=== PATIENT | female | born 1975 | race Hispanic/Latino ===

== ENCOUNTER 2020-11-22 17:42 | Emergency (ER) | payer OTHER ==
--- OUTSIDE RECORDS SUMMARY | 2020-11-22 17:45 | XMS REPORT | Continuity of Care Document ---
:[address] [facility] t Address [address] [place] [address] Care Team Providers Name Role Phone TJ Primary Care Physician Unavailable Mirian COMB CAPPER Attending Clinician MIRIAN Attending Clinician Unavailable Hector FLORES Attending Clinician Unavailable Hector Flores MD Attending Clinician Wing NARVAEZP Attending Clinician Kiesha STERN Attending Clinician Provider, Urgent Care Attending Clinician Unavailable Car DAMON, A Attending Clinician Unavailable Kayla RN Attending Clinician Unavailable Perry DAMON, C Attending Clinician Unavailable DEDRICK Attending Clinician Unavailable Lab, Fam Pob I Attending Clinician Unavailable Payers Payer Name Policy Type Policy Number Effective Date Expiration Date S ource ACCESS NETWORK [id number] 2020 Sd on GENERICTPA [employer]IG[employer] 00:00:00 [id number] Access Network [place] P[place] POS [id number] 2019 00:00:00 Problems Condition Condition Condition Status Onset Resolution Last Treating Co mments Source Name Details Category Date Date Treatment Clinician Date Adjustment 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 1-02 Sd o with with 00:00: n depressed depressed 00 mood mood Dysuria-fr Dysuria-fr 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 00:00: n 00 Family Family Disease Active history of history of 4-26 An derso malignant malignant 00:00: n neoplasm neoplasm 00 of ovary of ovary Ovarian Ovarian Disease Active Overview: cyst cyst 6-29 HL ICD10 Anderso 00:00: regulator n 00 y upload Elevated Elevated Disease Active cancer cancer 6 Anderso antigen antigen 00:00: n 125 (CA 125 (CA 00 125) 125) Acquired Acquired Disease Active absence of absence of 6-30 An derso bilateral bilateral 00:00: n breasts breasts 00 and and nipples nipples BRCA1 gene 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 Family History Family Member Diagnosis Comments Start Date Stop Date Source Maternal aunt Ovarian cancer MD Ramon jimenez Maternal grandmother Ovarian cancer MD Mandel Natural mother Ovarian cancer Other -Breast cancer MD Maddie loredo Natural sister Ovarian cancer Social History Social Habit Start Date Stop Date Quantity Comments Source Sex Assigned At F MD [place] on Exposure to Not sure MD Mandel SARS-CoV-2 (event) Tobacco use and 2020-05-02 2020-05-02 Never used MD [place] on exposure 00:00:00 00:00:00 Alcohol intake 2020-05-02 2020-05-02 Current MD Maddie loredo 00:00:00 00:00:00 non-drinker of alcohol (finding) Smoking Status Start Date Stop Date Source Never smoker MD Mandel Medications Ordered Filled Start Stop Current Ordering Indication Dosage Frequency Signature Comments Components Source Medication Medication Date Date Medication? Clinician (SIG) Name Name estradiol-n Yes Menopausal 1{patch Place 1 orethindron 4-29 and female } patch on Anderso e 00:00: climacteric the skin 2 n (CombiPatch 00 states (two) ) 0.05 times a mg-0.14 week MTH. mg/24 hr Remove old transdermal patch(es) patch before replacing new patch(es). MULTIVITAMI Yes 1{tbl} Take 1 MD Loredo ORAL 4-27 tablet by Andjulieth 16:26: mouth n 46 daily. PARoxetine Yes Menopausal 20mg Take 1 MD (PAXIL) 20 4-27 symptom tablet (20 Anderso mg tablet 00:00: mg) by n 00 mouth every morning. PARoxetine Yes BRCA1 gene 20mg Take 1 MD (PAXIL) 20 1-08 mutation tablet (20 Anderso mg tablet 00:00: positive mg) by n 00 mouth every morning. temazepam 2019-07 Yes BRCA1 gene 15mg Take 1 MD (RESTORIL) 1-30 mutation capsule An derso 15 mg 00:00: positive (15 mg) by n capsule 00 mouth at bedtime. LORazepam Yes BRCA1 gene .5mg Take 1 MD (ATIVAN) 8- mutation tablet Krzysztof so 0.5 mg 00:00: positive (0.5 mg) n tablet 00 by mouth 2 (two) times a day as needed (for breakthrou gh anxiety). temazepam 2019- No BRCA1 gene 15mg Take 1 MD (RESTORIL) 8-12 22-30 mutation capsule A nderso 15 mg 00:00: 00:00 positive (15 mg) by n capsule 00 :00 mouth at bedtime. temazepam Yes BRCA1 gene 15mg Take 1 MD (RESTORIL) 4-27 mutation capsule An derso 15 mg 00:00: positive (15 mg) by n capsule 00 mouth at bedtime. PARoxetine No BRCA1 gene 20mg Take 1 MD (PAXIL) 20 4-27 -08 mutation tablet (20 Anderso mg tablet 00:00: 00:00 positive mg) by n 00 :00 mouth every morning. LORazepam 2019- No BRCA1 gene .5mg Take 1 MD (ATIVAN) 4-09 03- mutation tablet Ramon rso 0.5 mg 00:00: 00:00 positive (0.5 mg) n tablet 00 :00 by mouth 2 (two) times a day as needed (for breakthrou gh anxiety). LORazepam Yes BRCA1 gene Take one MD (ATIVAN) 2-25 mutation half to Ramon rso 0.5 mg 00:00: positive one tablet n tablet 00 as needed for anxiety. temazepam 2019- No BRCA1 gene 15mg Take 1 MD (RESTORIL) 2- 08-06 mutation capsule A nderso 15 mg 00:00: 00:00 positive (15 mg) by n capsule 00 :00 mouth at bedtime. PARoxetine 2018-07 No Menopausal 20mg Take 1 MD (PAXIL) 20 2-31 04-27 symptom tablet (20 Anderso mg tablet 00:00: 00:00 mg) by n 00 :00 mouth every morning. norelgestro 2018- Yes Other Place one MD min-ethinyl 9-13 specified patch on Anderso estradiol 00:00: irregular skin n (ORTHO 00 menstruatio weekly EVRA) 150 n continuous mcg-35 mcg/24 hr transdermal patch estradiol-n 2019- No Menopausal 1{patch Place 1 MD orethindron 03-04 and female } patch on Anderso e 00:00: 04:59 climacteric the skin 2 n (COMBIPATCH 00 :00 states (two) ) 0.05-0.25 times a mg/24 hr week MTH. Remove old patch(es) before replacing new patch(es). ibuprofen Yes BRCA1 gene 600mg Take 1 MD (ADVIL,MOTR 8-05 mutation tablet An derso [place]) 600 mg 00:00: positive (600 mg) n tablet 00 by mouth every 6 (six) hours as needed for moderate pain. senna-docus Yes BRCA1 gene 1{tbl} Take 1 MD ate 8-05 mutation tablet by Sd o (SENOKOT-S) 00:00: positive mouth 2 n 8.6 mg-50 00 (two) mg tablet times a day as needed for constipati on. oxyCODONE Yes BRCA1 gene 5mg Take 1 MD (ROXICODONE 8-05 mutation tablet (5 Anderso ) 5 mg 00:00: positive mg) by n immediate 00 mouth release every 4 tablet (four) hours as needed for severe pain. acetaminoph Yes BRCA1 gene 1000mg Take 2 MD en (TYLENOL 8-05 mutation tablets A nderso EXTRA 00:00: positive (1,000 mg) n STRENGTH) 00 by mouth 500 mg every 6 tablet (six) hours as needed for mild pain. Immunizations Ordered Immunization Filled Immunization Date Status Commen ts Source Name Name Mary Ellen 2013-02-16 Completed MD Mandel 00:00:00 Vital Signs Vital Name Observation Time Observation Value Comments Source Systolic blood pressure 2020-11-07 16:26:12 100 mm[Hg] MD Mandel Diastolic blood pressure 2020-11-07 16:26:12 59 mm[Hg] MD Mandle Heart rate 2020-11-07 16:26:12 65 /min MD Krzysztof garcia Body temperature 2020-11-07 16:26:12 36.39 Anika MD Marinana sanchez Respiratory rate 2020-11-07 16:26:12 17 /min MD Marianna sanchez Body height 2020-11-07 15:26:00 153.9 cm MD Krzysztof garcia Body weight 2020-11-07 15:26:00 77 kg MD Krzysztof garcia BMI 2020-11-07 15:26:00 32.50 kg/m2 MD Krzysztof garcia Procedures Procedure Date / Time Performed Performing Clinician [facility] e CYTOLOGY CASE MANAGEMENT SOCIAL WORKER INTERPRETATION 2020-11-07 17:14:00 Tomeka Folres MD CYTOLOGY HPV 16/18 GENOTYPING 2020-11-07 17:14:00 Tomeka Flores MD AND HIGH RISK POOL DEXA BONE MINERAL DENSITY BOTH 2020-11-07 15:50:31 Constantine Lemons MD HIPS AND SPINE CANCER ANTIGEN 125 2020-11-07 15:04:00 Constantine Lemons MD on CANCER ANTIGEN 125 2020-07-25 17:48:00 Constantine Lemons MD on Encounters Start End Encounter Admission Attending Care Care Encounter Source Date/Time Date/Time Type Type Clinicians Facility Department ID 2020-11-07 2020-11-07 Outpatient EL MIRIANBENJAMIN MDA [id number] 09:15:00 23:59:00 CONSTANTINE loredo 2020-11-07 2020-11-07 Outpatient EL BENJAMIN FLORES MDA [id number] MD 10:58:35 12:22:49 TOMEKA loredo 2020-11-07 2020-11-07 Outpatient EL MIRIANBENJAMIN MDA [id number] 10:09:06 10:09:06 CONSTANTINE loredo 2020-10-23 2020-10-23 Tiara Dimas [facility] [id number] 00:00:00 00:00:00 [facility] [id number] [place] [id number] Professio [phone] [place] [address] [address] 2020-09-15 2020-09-15 Urgent Provider, [facility] [id number] 10:39:35 10:59:35 [facility] [id number] Care [place] [id number] Professio [phone] [place] [address] [address] 2020-07-25 2020-07-25 Outpatient EL MIRIAN, MDA MDA [id number] 10:00:00 23:59:00 CONSTANTINE loredo 2020-05-02 2020-05-02 Outpatient EL TSE, MDA MDA [id number] 15:40:13 15:59:55 KYLAH loredo 2020-02-17 2020-02-17 Outpatient EL TSE, MDA MDA [id number] MD 15:38:12 15:56:58 KYLAH loredo 2020-02-07 2020-02-07 Outpatient EL TSE, MDA MDA [id number] 00:00:00 00:00:00 KYLAH loredo 2020-01-02 2020-01-02 Laboratory Lab, [facility] [id number] 12:35:38 12:36:17 Only Fam Pob I Health [id number] [place] [id number] Professio [phone] [place] [address] [address] Results Test Description Test Time Test Comments Results Result Comments Source Cytology CASE MANAGEMENT SOCIAL WORKER Interpretation 2020-11-17 21:40:00 Test Item Value Reference Range Interpretation Comme nts Gross e8dmoMYvGYRxjVTTFHHtLRdwlhYcWUNdqKWiT6CndyxwZGfgYF1xUV2pbGklmFIgdYFyEV5RXXUmWaJa OCLidCOdmpCgJtGgNEKhgICicUI0OMRtZX9tthbjKXlmBHieXZKtuwF8ERUpbAQzF5VoILEqJT4yexys NMV2BMkwkN8ftlRWSxghSu7vfZIldCquXvNxWnUkLSJ Description wULGgFIIodUxeOPPgSQh5uB9ONpwqSSA5SORPDgdgGLVoZP4Hl7oiPXDrcSWsEOS0BMmfjCJfTTQmDHY hWAx6QILkDCwcdVXdNB6bqPmcClymnXilq2YwhOBzDTmoDLOyHNOqUXvdVYQnFQ8MFqAmTLCcQJD2Wgu xQAu9TLr7JV2RLhCeOQNeMQxgDsZqSURpEYe1XCpzOS (test code = 4PJDgzJDwnPxY5BQS2AZK0HrJjIMTuFmEtREDkZVMkIWchOOzlyeUlSIWtWHBtFGeeAsejSPscP04rcS xfhR3tOkcdqnItHTQ6HZYmigJQXuothLMrwrkoeUbzYcLfhBIsSzBoQLedaVYybVCdHTlvmwUdwpheHT KJVwwiqDJnhXesywGuOTTgS2MuNPBmnCxegecwtDAgF [id number]) QHuyBWxNW8TDSLbUPqkTISlyUQIKEO2LB3aLLkxxVWvsiccPBIdA4LgI7ZsphKesJViNZGdqeHqh4ohT RC3MBCzbFKegUQdLwAuHvcrDXB8CUdvg4ebEGC7TNDqkWYtuOYySQahImShOeebHCGuQ5MuQ0ZnxkV6I Qp9 Specimen c6ajyIJwRBMqmLLlHzJaWEAwRMLwh7nlFOVfeSHdBwSfHgPaZiNpMlfhbDTnXCNqSmAxp1pvi049tAGv p3khMMFfQcX6xIFcLENdlPXjU688ZWIsAHdno6iph6BsUNYytSIge6P9GLZXvviltPb7b3zlToKiMi9g uPFUw5XytLXtEC7xtuh7pFkeV33hi0Z6TpxzY4bzGTE Information sUDQgY8JvVZ2kJOYkQxq5QSM4OJW6EOXeSDZgU2TzLM5wPRSpgRSeSYfsjhOkNGnzevZiguSkYcy2KDB 8GDR9LKJxHPCsMOgrbjNnlhEmQey0SWPcJDK9SPAgLYS2BTmqacLzfvCqBon5PZIhM114AHS3vGapk4g tGQS2UVWoFTLpMzIpYu4xeIYoN924ECDaOUDGUJCfwN (test code = k0TSGxjzNilbEytBUCi199I881CBWeKJVpUKc6OvKMYKSnwaa2zU3lJVJnxu03gLzuwoCok79jcJIbWB alNyUyWRJjAyeioCIbq67cGYhwrVi5p6spnhCocGTKPSJmqep2lZ6zV566UXD8VKRaHSj5FApqvQMwvM 1lzMJ4WBdpIWCqGCpjIckfHmJoKUzyUYIhTKphdBRwm 29672) 3B3bFhlYUnppmVeZQfyKXWqfxSVVZj4c1ljIyfhnoS9vIGoq5W6pMtyAXubeiQqCsbxafS9BOVue1KfL YGhg3NoZVIrb9lqLU84oInyxfHuVBDuzUCfa8CadK2aLDD0zQlzaqzno91blGVmLZ54hRvltlNsULZho JCfGsVuLMpiQLHpEYVuDTNfHCWjJKFgNAaojMFdpP7i rBP5HQttEBybKHRcEEetJ865SOV8CCStSTv6VZkazGJtyJ0psCH1TAx1TPWxSxUcFkmdGrAgZJyrHCUy CKvkqMZpw9M0sLqyJJsyeaZfSWwpHOQvejZBGZj8i1onHAagbkY4cWLtj4F3lJwcSDfmemLkHNzflqGq YMZzj9VnYCGcv5DeDATqf2ozNU75dFaxkfHyLQJyxVU ny3BleS4dZAO3jEvihiDwEODzQVr8PYumaYFulW9zbXZ5QQf6CVFmWNBsHcedAnBbSPonEVTzSBezwHV bb0S6gAkxBBptmoWaOjgvBOLorxZGTpx8u8biDKYbm00bkTOlBWdxKCEoawFubra0v3qlJIWyx48cnCZ wXGxpMzYwXHJpMzYwXHNiMTAwXHNhMTAwXHNsMCBCbG 8wi8M0b3NgD606UUFtYXPslWRTTBQEK952SCDiZLRxEaUpPpMvGVVUX4ENV435GOBxEFQxwSfvIWEjQJ JnDKfcJR2rkQNctET9gDqgK7AaFta5iTtmXtHgBRhlJMOdcU9wN079GQVwGZrduPffR8V8CTYrgOrec1 CyOBhrJIVxfI7kD813XSNfSLvfWcAeOgJrGGysGWbvd HXjUUIsJ048BIJpZUfsnmT7tUTwStOcKqGiWKc9hFPrmYn5CGkbgDotRKN9ABH2Wct0I9d8wMB6XcNss Bq5Anp5IXF5HWn9JRo8uGD5NKXlpOt1GwdlJFU1CCLyRYh3cXi3FQCpa4NnXAZlDYxnjEVtSKNkNq4ba SS2dXOnE869GLPgHHwgxcV6rSViLlBnOyRqWub2YNKr ZYQ3CNBiNSDlNiezwbYyO0YxXCNpGHwwAu19sH5cYL0uFYJzcd96pJjbwmAcAMJfGUp1WOvcPSatzsL5 DZJbYeUvkjJgDvTlwbOyKGNfNJYkByQviOZzpm1Fi0Ulv6LpPf6rxNn3b2ibfcYjMYOcNJMhcVXyHIy7 d9hxyqLgYHFdO2Jax07gH144XWAyCeGrQsMuDgSqZZV IcQEtp7VkfFJmN086NBAsEwKeuNCDMDQbCWUtGWl5a6fyzdN8OPItB0L9OTaVQFzfNSVbt1RbP852JXA yPggttkDRp34gNY46D252b6drKLUzqsTorTpNfwgut8spR786LCEpzDItgiOvMuTzNZJfuHFchUL1JHY rSF8bgwysMKytQAxkLMUaszS3WNXbrMYxZ0MpDAOcVB 1vqqxnFVL6NMcjBXWnRPB2DuMxLEGuk7Vaibf2WmHzip1cvy85LLF0p3WscYasENB9XVS4PdRiIx2ttS NmHPQpKE8uZvKzxVGiWFAloy98rFvaAIvsxsGjhU6mOnAhQMCpjJIdOLWhGL2owFYkQUZuiZ8svocqUR FrSuRaxvfmSLQcpGctytTiPh0huKrhBSC8WNpvR4wdr J4gFaB6WTkuD1egjI8rGKp7ZHvvaFU2HTHhlQ9gSN3syonng9sqMCgcZOtdRTSuzcN0fxE7GSGxbNVeH 3FhaF1gFNHtEC5kfxglx8olOMZ4GQcvMWWcVZJ3CnSxKHAim2Ktnqa3YcRoi1YihFToFIxcX11he527Q ETcxtKbN2rxgCQuubwczQZralcnWWzfpuT9FZVumpHi pOhudV8dKmZdJfKiHQzqIF1bQRHhI5dmiYFfHOOlPXXeH7qsXgAaaM8qvDppLLpxLyIfEqBuZZYGRtRQ IHM0dMktRHX6txFAYSHjCNKTlOI5oWRdBzTdXPJoNVCfvXChCDEch66xUMQ6ISRySPuzUXY8 Specimen Satisfactory for evaluation Adequacy (test code = 9847) TZ/Endocervi Endocervical/transformation zone component present candice (test code = 9848) Diagnosis Negative for intraepithelial lesion or malignancy (test code = 9849) Diagnosis Acute inflammation with associated cellular changes Additional Statements (test code = 9850) HPV Reflex Yes for Scratch Finisher (test code = 9974) Informationa j7bacJKzNRHbcHYeBpBbGJCgNJMgv3btMDNjvXVuVmGgPjFaCeNqHrsfaQOrVYBdFoNzw0vjn702fXBd y2rkBTNnIpP2sTHzILHftOEzI856ORKoLQywx3djg2ViBEDbbOSzj9G3LHFTYVofGRLDSEs9z2xdVlYg ThJ2yPLkKJxaL5gjwnVbzSNaDPUjOWl4aD27UNResW8 l Points ocOKpVXpuzaUiXpR9PMqnMRMnAbR9JVSosAViFBNhZ7dbFJJrSXbpRZPeGCygbTJgLGV2vXgru4R0wVR ikQZxnCkgVgQhFoJlKnLNu2DmRXh1aCigY0JsKENmEuV4vGRvMYHmSUbuICTeZUZaaqZ5rM50IPkynsI 1mKRcm0Ugf71uo488iB3liBBvBPP9FRNyYUIssXQrOO (test code = FiRDH2ZRHonXPhO5ptYAKjLK5ihejaVMfvWVoiKZBpyOF4TEMesKRfE3BkOBAnELpkAHDddxj3JfSgGx 9zaTByaNejFZhji7rlu5phsFPpJzq7YENqYzNmLliuUKbhd0Xtf5xzWOBxkq6qQIS5jOPasVyrf0V7rS DbHVIusAWpheOfWNMvEzD8JHozTW4nmc24CQXnIJC4m 9836) f6qzGRsjUsbleBlkHVdRDczS9XoPOAkz560FLWcI0DfPDCpx7Q5alKtVrNaHOWfpWM7slR3MAAyEKc9v SWayaA7frRvcWZoS0phqI5iKZAtLM5nmurpu2xmAMbuTJtxNXSnkOU3quV7FQLewPBnU4WdzY4pSTPfC ZisIAQleik4LnHlVb4qyQFqyIhbSYgkQqrjEOgdETYx bxSihfOqfAjoZZWxAPTmWBwbABGqYEmgHWYrTQNiNvFsmQlciGewiB7iJlUhYdGoLPixQX1gMLMrZ4sx xZLeCJCgDXHuN9lcNkDitE5cyUiaQMhijvV2VBzyF2Niemofh9KwP1qrFHnqB6y5h2nzE5lmtKOvRSNh C4DtGY1pkbccyAFxP8BmkJTgMAL2TwziJ5AfaF8iMhE yq0DmfgClQBSyxzYoNBIuXCUfGScqNXUgb4FtfXo5YVAxLPHph6BzmBYbLDRhQJ6ogfRbcgUvrSVrrDA oj8gdzpQcVWXerAuvSpAzuI2ztWVdDV0etWRdjJFgg3X3TUueQPKqi72yLMXkCSm6zMCxDFOmxQI3zLY rpaJbQiMcfTGxYN6sVCMqf1JoHBUlOZYuimYlwdCkZL UyCEG5u4cwvGsvavL7yURgYWZoz0QbYC2aIJZ4unUnkiMeT8zbjnoiYUavZPB2QL1wWPYzehVPq29lAX Fwj3TaGEPxpW8pyTMxZEonnhPopVL8KQfcqeYgYdOertOrVNKjvD4rSVEhLK4jTEIjabOvxi0mrrSnJW LeDLZlT2OknaendGxrknWvJVJfex2aihTfEDA4EFJGI G4MCUYzGAJfo12rHHCwoSnanO3qzLWjfiLiCOMfc9AikV9tuAOJNGBrK6hwOC5yJTdbf2QqjYFqpLQqf PZ4KKNrq7AcNoMssaPsuPHofFOkU7IouJepS0fqXFDuBTPflnDgwBMti0CoOUJfyRT6bLFyOP2ZGgIRv 60cAWUvNVRIfrVpXSCqdCzsnJK2unH4xA4uLwHlxPky eB3eBoRnQyTtVlwlOD0gKAKcW6jeeNYsSVFcERLbG2xlSuIrfS5suR xmMlxmczIyXHBhcn0= MD MandelCytology HPV 16/18 Genotyping and High Risk [id number] 13:17:00 Test Item Value Reference Range Interpretation Comments HPV Type 16 (test code Negative Negative, = 9853) Indeterminate, Invalid HPV Type 18 (test code Negative Negative, = 9854) Indeterminate, Invalid HPV High Risk Negative Negative, Non-16/18 (test code = Indeterminate, 9855) Invalid Informational Points The shakira HPV Test (test code = 9852) ([facility], [place], [place]) is a qualitative in vitro diagnostic test for the detection of Human Papillomavirus in cervical specimens collected in PreservCyt Solution or SurePathTM Preservation Fluid. The test utilizes amplification of target DNA by the Polymerase Chain Reaction (PCR) and nucleic acid hybridization for the detection of 14 high-risk (HR) HPV types in a single analysis. The test specifically identifies types HPV16 and HPV18 while concurrently detecting the other high risk types (31, 33, 35, 39, 45, 51, 52, 56, 58, 59, 66, and 68). The performance characteristics of this test were validated and determined by the [facility] cytology laboratory. These validation analyses have confirmed the accurate performance of the assay of the employment legal assistant s stated limit of detection for the target of the test in various specimen types. The [facility] cytology laboratory is authorized under Clinical Laboratory Improvement Amendments (CLIA) to perform high-complexity testing. The [facility] Department of Pathology is accredited by the [employer] [place] ([employer]). MD MandelNM Bone Mineral Density Both Hips and [id number] 16:14:16The findings are in the range of normal bone mineral density. I personally reviewed these image(s) along with the resident's/fellow's interpretations, certify that if a procedure was performed I was physically present, and agree with the final report.Interface, Radiology Results In - 11/07/2020 11:16 AM CDTFULL RESULT:Examination: Bone Mineral Density (DXA), 11/07/2020linical History: 45-year-old postmenopausal woman with BRCA1 gene mutation and elevated CA- 125.Indication: Assessment of bone mineraldensity.Comparison: None.Technique: Bone mineral density was obtained using Hologic dual-energy X-ray absorptiometry.Findings: The findings are provided in the below table(s).Bone Density: Region Exam Date BMD T- Z- g/cm2 Score Score AP Spine (L1-L4) 11/07/2020 1.037 -0.1 0.4 Femoral Neck (Left) 11/07/2020 0.776 -0.7 -0.2 Total Hip (Left) 11/07/2020 0.947 0.0 0.3 Femoral Neck (Right) 11/07/2020 0.773 -0.7 -0.3 Total Hip (Right) 11/07/2020 0.943 0.0 0.3 For postmenopausal women and men age 50 and over, the World Health Organization criteria for BMD interpretation classify patients as: Normal (T-score at or above -1.0), Osteopenia (T-score between -1.0 and -2.5), or Osteoporosis (T- score at or below -2.5). IMPRESSION:The findings are in the range of normal bone mineral density.I personally reviewed these image(s) along with the resident's/fellow's interpretations, certify that if a procedure was performed I was physically present, and agree with the final report.MD MandelCA 125 2020-11-07 15:53:26 Test Item Value Reference Range Interpretation Comments CA 125 (test code = 6.6 U/mL See_Comment Results greater than 5164) 11,500.0 U/mL m ay not be reliable due to matrix effect with ext ended dilution as it exceeds the employment legal assistant's recommended limit. Caution should be exercised when interpreting ledbetter ch values and done in con junction with clinical context.Referen ce intervals are n ot available for m markos patients. Resul ts should be interpreted in conjunction wit h clinical context. Testin g Performed at [facility], [address], [place] [address] [Automat ed message] The system [employer] generated this result tra nsmitted reference range : <=38.0. The reference r shamar was not used to int erpret this result as valdo l/abnormal. MD Mandel
[2020-11-22] MEDS ORDERED: IBUPROFEN 200 MG TAB PO ONE (18:15)
[2020-11-22 18:27] LABS: Urine Blood 2+ (Negative); Urine Glucose Negative (Negative); Urine Protein Negative (Negative); Urine Specific Gravity 1.015 (1.005-1.030); Urine pH 5.5 (5.0-7.0)
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
--- NOTE | 2020-11-22 18:45 | RAD REPORT ---
EXAM DESCRIPTION: RAD - Shoulder Left 2 View - 11/22/2020 6:38 pm CLINICAL HISTORY: Left shoulder pain FINDINGS: Curvilinear calcific density superior to the humeral head may indicate calcific tendinitis . No fracture or dislocation noted
[2020-11-22 18:54] LABS: Urine Blood Negative (Negative); Urine Glucose Negative (Negative); Urine Protein Negative (Negative); Urine Specific Gravity 1.015 (1.005-1.030); Urine pH 6.5 (5.0-7.0)
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
[2020-11-22 20:50] VITALS: TEMP 98.6; O2SAT 100
[2020-11-22 20:51] VITALS: BP 129/82
== END 2020-11-22 20:31 | disposition home or self-care (01) ==
LOC: ER 17:42
DX: S16.1XXA Strain of muscle, fascia and tendon at neck level, initial encounter (principal); V49.40XA Driver injured in collision with unspecified motor vehicles in traffic accident, initial encounter; Z90.13 Acquired absence of bilateral breasts and nipples
CPT/HCPCS: 72125; 81003; 99284